=== PATIENT | female | born 1975 | race Caucasian/White ===

== ENCOUNTER 2016-08-16 14:48 | Emergency (ER) | payer BC ==
[~2016-08-16] VITALS: Ht 162.6 cm; Wt 120.0 kg
[~2016-08-16 14:48] MED LIST: ALLDSR/24 PO; ESCI10TA17 PO; LRT5 PO
[2016-08-16 14:53] VITALS: Ht 162.6 cm; Wt 120.0 kg
[2016-08-16] MEDS ORDERED: ONDANSETRON INJ 2 MG/ML 2 ML VIAL IV STA (15:09)
[2016-08-16] MEDS ORDERED: SODIUM CHLORIDE 0.9% 1000ML 1,000 ML IV STA ×3 (15:09→19:26)
--- NOTE | 2016-08-16 15:09 | EMERGENCY ROOM VISIT NOTE ---
History First contact with patient: 14:57 Chief Complaint: VOMITING Stated Complaint: VOMITING, INTENSE HUIZAR, NAUSEA History of Present Illness The patient is a 40 year old female who presents to the Emergency Room with complaints of headache, neck pain and nausea for the last week. This illness appeared to start 2 weeks prior with a lump on the right side of her face for which she went to her primary care doctor and was prescribed augmentin (for which she is still taking). The swelling has slowly improved but she is left with a hard lump on that side. A week ago however she started having slowly increasing nausea with neck pain. She vomited once on Saturday and then again today she has been unable to stop. The pain in her neck also started one week prior and has now spread to the top of her head and behind her eyes. This headache is slowly getting progressively worse and is now the worst headache of her life. Severity 8/10. Her neck muscles are the most painful part of her headache. Her partner appears to be going through a similar illness during the same timeline but has not seen a medical provider for this. IUD - light spotting currently. She denies any possibility of . Review of Systems See HPI for pertinent positives & negatives. A total of 10 systems reviewed and were otherwise negative. Past Medical/Surgical History Medical Problems: (1) Seasonal allergies Surgical Problems: (1) TMJ dysfunction Social History Smoking Status: Never Smoker Smokeless Tobacco Use: No Alcohol Use: none Drug Use: none Marital Status: single Housing Status: lives with family (2 daughters) Current/Historical Medications Scheduled Amoxicillin & Pot Clavulanate (Augmentin 875-125 mg), 1 TAB PO BID Bupropion (Wellbutrin Sr), 150 MG PO BID Fexofenadine-Pseudoephedrine (Ashley-D 24 Hour Allergy), 1 TAB PO DAILY Allergies Coded Allergies: Macrolides (Verified Allergy, Intermediate, 08/16/16) Codeine (Verified Allergy, Unknown, "rash and vomiting", 08/16/16) Latex (Verified Allergy, Unknown, "irritation to latex condoms", 08/16/16) Physical Exam Vital Signs Date Time Temp Pulse Resp B/P (MAP) Pulse Ox O2 Delivery O2 Flow Rate FiO2 08/16/16 20:44 36.6 60 18 95/66 98 08/16/16 20:42 60 18 95/66 98 Room Air 08/16/16 18:17 78 16 113/74 98 Room Air 08/16/16 17:19 67 18 112/66 98 Room Air 08/16/16 14:53 36.6 75 18 112/84 96 Room Air Physical Exam VITAL SIGNS: were reviewed as above GENERAL: moderate acute distress from headache pain SKIN: Warm dry and pink, no rashes HEAD: Normocephalic and atraumatic, tender 5mm firm swelling on right side over parotid gland EYES: extraocular muscles intact, pupils equal and reactive to light, sharp optic discs on panoptic funduscopic examination OROPHARYNX: non erythematous, moist mucus membranes NECK: Supple, no adenopathy. Kernig's sign positive for lower back pain on right side, nuchal rigidity is absent, Brudzinski's is negative LUNGS: No respiratory distress, clear to auscultation, no accessory muscle use HEART: Regular rate and rhythm, heart sounds 1+2, no murmurs ABDOMEN: Soft, mild epigastric tenderness without rebound or guarding, bowel sounds normal BACK: no CVA tenderness EXTREMITIES: Warm and well perfused, no calf tenderness/swelling, no pedal edema NEUROLOGICALLY: Awake alert and oriented without focal deficit. Cranial nerves 2 -12 intact. Cerebellar testing is within normal limits. There is no nystagmus. There is no facial droop. Speech is clear. Vision is grossly normal. No lateralizing weakness or change in sensation in all 4 extremities MUSCULOSKELETAL: Good muscle tone. No evidence of trauma Medical Decision & Procedures ER Provider Diagnostic Interpretation: HEAD CT NONCONTRAST CT DOSE: 537.48 mGy.cm HISTORY: Headache. Mental status change. Severe headache with nausea and vomiting TECHNIQUE: Multiaxial CT images of the head were performed without the use of intravenous contrast. Comparison: None. Findings: The paranasal sinuses and mastoid air cells are clear. The calvarium and skull base are intact. The ventricles and sulci are within normal limits. There is no mass, hematoma, midline shift, or acute infarct. Impression: No acute intracranial abnormality. Electronically signed by: Mitch Sena M.D. 08/16/2016 3:49 PM Dictated Date/Time: 08/16/2016 3:48 PM Laboratory Results 08/16/16 15:20 Red Blood Count 4.26, Mean Corpuscular Volume 94.1, Mean Corpuscular Hemoglobin 31.9, Mean Corpuscular Hemoglobin Concent 33.9, Mean Platelet Volume 9.6, Neutrophils (%) (Auto) 76.2, Lymphocytes (%) (Auto) 16.6, Monocytes (%) (Auto) 5.8, Eosinophils (%) (Auto) 1.1, Basophils (%) (Auto) 0.1, Neutrophils # (Auto) 8.20, Lymphocytes # (Auto) 1.79, Monocytes # (Auto) 0.63, Eosinophils # (Auto) 0.12, Basophils # (Auto) 0.01 08/16/16 15:20 Test 08/16/16 00:00 08/16/16 15:20 08/16/16 19:47 Urine Color YELLOW Urine Appearance CLEAR (CLEAR) Urine pH 5.0 (4.5-7.5) Urine Specific [place] 1.019 (1.000-1.030) Urine Protein NEG (NEG) Urine Glucose (UA) NEG (NEG) Urine Ketones TRACE (NEG) Urine Occult Blood 1+ (NEG) Urine Nitrite NEG (NEG) Urine Bilirubin NEG (NEG) Urine Urobilinogen NEG (NEG) Urine Leukocyte Esterase NEG (NEG) Urine WBC (Auto) 0 /hpf (0-5) Urine RBC (Auto) 0-4 /hpf (0-4) Urine Hyaline Casts (Auto) 1-5 /lpf (0-5) Urine Epithelial Cells (Auto) >30 /lpf (0-5) Urine Bacteria (Auto) NEG (NEG) Urine Test NEG (NEG) White Blood Count 10.77 K/uL (4.8-10.8) Red Blood Count 4.26 M/uL (4.2-5.4) Hemoglobin 13.6 g/dL (12.0-16.0) Hematocrit 40.1 % (37-47) Mean Corpuscular Volume 94.1 fL (80-100) Mean Corpuscular Hemoglobin 31.9 pg (25-34) Mean Corpuscular Hemoglobin Concent 33.9 g/dl (32-36) Platelet Count 271 K/uL (130-400) Mean Platelet Volume 9.6 fL (7.4-10.4) Neutrophils (%) (Auto) 76.2 % Lymphocytes (%) (Auto) 16.6 % Monocytes (%) (Auto) 5.8 % Eosinophils (%) (Auto) 1.1 % Basophils (%) (Auto) 0.1 % Neutrophils # (Auto) 8.20 K/uL (1.4-6.5) Lymphocytes # (Auto) 1.79 K/uL (1.2-3.4) Monocytes # (Auto) 0.63 K/uL (0.11-0.59) Eosinophils # (Auto) 0.12 K/uL (0-0.5) Basophils # (Auto) 0.01 K/uL (0-0.2) RDW Standard Deviation 42.3 fL (36.4-46.3) RDW Coefficient of Variation 12.3 % (11.5-14.5) Immature Granulocyte % (Auto) 0.2 % Immature Granulocyte # (Auto) 0.02 K/uL (0.00-0.02) Anion Gap mmol/L (3-11) Est Creatinine Clear Calc Drug Dose 98.4 ml/min Estimated GFR () 85.1 Estimated GFR (Non- 73.5 BUN/Creatinine Ratio 10.4 (10-20) Calcium Level 9.4 mg/dl (8.5-10.1) Total Bilirubin 0.4 mg/dl (0.2-1) Aspartate Amino Transf (AST/SGOT) 13 U/L (15-37) Alanine Aminotransferase (ALT/SGPT) 23 U/L (12-78) Alkaline Phosphatase 65 U/L (45-117) Total Protein 7.6 gm/dl (6.4-8.2) Albumin 3.6 gm/dl (3.4-5.0) Globulin 4.0 gm/dl (2.5-4.0) Albumin/Globulin Ratio 0.9 (0.9-2) Lipase 112 U/L (73-393) Lyme Disease IgG Antibody NEG (NEG) Lyme Disease IgM Antibody NEG (NEG) CSF Color COLORLESS CSF Appearance CLEAR CSF WBC 1 /uL (0-5) CSF RBC 0 /uL (0) CSF Xanthrochromic NO XANTHOCHROMIA CSF Cell Count Tube # 4 CSF Chemistry Tube # 2 CSF Glucose 50 mg/dl (40-70) CSF Total Protein 59.1 mg/dl (15.0-45.0) Date/Time Source Procedure Growth Status 08/16/16 19:47 Cerebral Spinal Fluid Gram Stain - Final Complete 08/16/16 19:47 Cerebral Spinal Fluid CSF Culture - Final NO GROWTH Complete Medications Administered Medications (Trade) Dose Ordered Sig/Jose Route Start Time Stop Time Status Last Admin Dose Admin Ondansetron HCl (Zofran Inj) 4 mg NOW STAT IV 08/16/16 15:09 08/16/16 15:12 DC 08/16/16 15:42 4 MG Sodium Chloride 1,000 ml @ 999 mls/hr Q1H1M STAT IV 08/16/16 15:09 08/16/16 16:09 DC 08/16/16 15:41 999 MLS/HR Morphine Sulfate (MoRPHine SULFATE INJ) 4 mg NOW STAT IV 08/16/16 15:15 08/16/16 15:18 DC 08/16/16 15:42 4 MG Promethazine HCl 12.5 mg/Sodium Chloride 50.5 ml @ 204 mls/hr NOW STAT IV 08/16/16 16:06 08/16/16 16:20 DC 08/16/16 16:18 204 MLS/HR Sodium Chloride 1,000 ml @ 999 mls/hr Q1H1M STAT IV 08/16/16 16:40 08/16/16 17:40 DC 08/16/16 16:44 999 MLS/HR Hydromorphone HCl (Dilaudid Inj) 1 mg NOW STAT IV 08/16/16 18:05 08/16/16 18:07 DC 08/16/16 18:05 1 MG Promethazine HCl 12.5 mg/Sodium Chloride 50.5 ml @ 204 mls/hr NOW STAT IV 08/16/16 18:05 08/16/16 18:19 DC 08/16/16 18:39 204 MLS/HR Diphenhydramine HCl (Benadryl Inj) 25 mg NOW STAT IV 08/16/16 18:09 08/16/16 18:10 DC 08/16/16 18:09 25 MG Ranitidine HCl (zANTac IV) 50 mg NOW STAT IV 08/16/16 19:24 08/16/16 19:26 DC 08/16/16 20:22 50 MG Ketorolac Tromethamine (Toradol Inj) 30 mg NOW STAT IV 08/16/16 19:24 08/16/16 19:26 DC 08/16/16 20:21 30 MG Sodium Chloride 1,000 ml @ 500 mls/hr Q2H STAT IV 08/16/16 19:26 08/16/16 21:25 DC 08/16/16 20:21 500 MLS/HR Procedure Lumbar Puncture Indication: meningitis symptoms and signs. Verbal and written consent was obtained after the risks and benefits were explained, including but not limited to headache, bleeding/clotting, scarring, infection, pain, and bone/joint/nerve damage. At this time, the risks of the procedure are less than the risks of NOT performing the procedure. A time out was taken and the correct patient and site identified. The patient was placed in the left lateral recumbent position and the back was prepped with betadine and draped in the standard fashion. The L3 intervertebral space was identified, anesthetized locally with 1% lidocaine without epinephrine, and the spinal needle was inserted through the skin with the bevel parallel to the dural fibers. The needle appeared to hit bone on multiple attempts and CSF could not be obtained. The procedure was also attempted multiple times by Dr Teresa without success. The stylet was replaced and the needle was removed. A bandaid was placed and the patient was placed in the supine position. The case was discussed with Dr Mohan who will perform the procedure under fluoroscopic guidance. ED Course 14:58 Complete history and physical performed 15:[address] Teresa Medical Decision Prior records/ancillary studies reviewed. Additional history obtained from the patient. Triage Nursing notes reviewed. The patient's history was concerning for headache. Differential diagnosis: Etiologies such as migraine headache, meningitis, sinusitis, CO exposure, ICH, SAH, infection, tumor, headache, sinus thrombosis, arterial dissection, as well as others were entertained. Physical examination findings: As above. Non-focal. ER treatment provided: Zofran 4mg IV for her nausea, Morphine 4mg IV for her pain. NSS (total of 3L over ED course) boluses given for dehydration. The morphine made her headache and neck pain worse and she refused further pain medications until the lumbar puncture Phenergan 12.5mg IV was prescribed due to ongoing nausea. At the time of the lumbar puncture she was offered additional pain relief due to ongoing headache which she agreed however she had a similar reaction to Dilaudid 1mg IV as per the morphine where her neck pain got worse. Phenergan was again given for After the lumbar puncture she was still having headache and neck pain therefore toradol 30mg IV was given and ranitidine 50mg IV for GI prophylaxis (given she was having some epigastric pain on examination. Diagnostics interpreted by me: The labs were unremarkable. (mildly elevated neutrophils with normal WBC) Urine was positive for Hgb but no RBC. Imaging studies: CT head was performed due to intensity of headache with concurrent nausea and vomiting but was normal. Given normal WBC, lack of current fever, bacterial meningitis was felt to be unlikely. However due to meningitis signs on examination and duration of symptoms the benefits and risks of a lumbar puncture were discussed with the patient and she wished to go ahead with this (see procedure note above). Procedure was attempted by myself and Dr Teresa however this was not successful. Lumbar puncture under radiographic guidance was discussed with Dr Mohan who performed the procedure. The patient was handed over to Dr Teresa at the end of my shift with these results still outstanding. This appears to be consistent with a viral illness however CSF results were outstanding at the time of hand over. The patient informed about the findings as listed above and will await CSF results before discharge. Impression Primary Impression: Viral illness Additional Impressions: Headache Neck pain Departure Information Dispostion Still a Patient Condition FAIR Referrals Alexandria Montiel PA-C (PCP) Patient Instructions My [facility] Resident Tracking Resident Involvement: Resident Care Provided Care Provided: Adult ED Problem Qualifiers
[2016-08-16] MEDS ORDERED: MoRPHine SULFATE 4 MG/ML 1 ML CARP\\VIAL IV STA (15:15)
[2016-08-16] MEDS ORDERED: AMOX875T PO (15:27)
[2016-08-16] MEDS ORDERED: FEXO1TAB58 PO (15:27)
[2016-08-16] MEDS ORDERED: BUPR-79 PO (15:27)
[2016-08-16 15:49] LABS: BASO % 0.1 %; BASO ABS # 0.01 K/uL (0-0.2); COMPLETE YES; EOS % 1.1 %; HEMATOCRIT 40.1 % (37-47); IG% 0.2 %; LYMPH % 16.6 %; LYMPH ABS # 1.79 K/uL (1.2-3.4); MEAN CELL VOLUME 94.1 fL (80-100); MEAN CORPUSCULAR HEMOGLOBIN 31.9 pg (25-34); MEAN CORPUSCULAR HGB CONC 33.9 g/dl (32-36); MEAN PLATELET VOLUME 9.6 fL (7.4-10.4); MONO % 5.8 %; NEUT % 76.2 %; PLATELET COUNT 271 K/uL (130-400); RED BLOOD COUNT 4.26 M/uL (4.2-5.4); WHITE BLOOD COUNT 10.77 K/uL (4.8-10.8)
--- NOTE | 2016-08-16 15:51 | DIAGNOSTIC IMAGING REPORT ---
HEAD CT NONCONTRAST CT DOSE: 537.48 mGy.cm HISTORY: Headache. Mental status change. Severe headache with nausea and vomiting TECHNIQUE: Multiaxial CT images of the head were performed without the use of intravenous contrast. Comparison: None. Findings: The paranasal sinuses and mastoid air cells are clear. The calvarium and skull base are intact. The ventricles and sulci are within normal limits. There is no mass, hematoma, midline shift, or acute infarct. Impression: No acute intracranial abnormality. Electronically signed by: Mitch Sena M.D. 08/16/2016 3:49 PM Dictated Date/Time: 08/16/2016 3:48 PM
[2016-08-16] MEDS ORDERED: PROMETHAZINE HCL INJ 12.5 MG in SODIUM CHLORIDE 0.9% 50ML 50 ML IV STA ×2 (16:06→18:05)
[2016-08-16 16:38] LABS: CHLORIDE 107 mmol/L (98-107); POTASSIUM 4.4 mmol/L (3.5-5.1); SODIUM 140 mmol/L (136-145)
[2016-08-16 16:53] LABS: LYME DISEASE AB IGG NEG (NEG); LYME DISEASE AB IGM NEG (NEG)
[2016-08-16 16:59] LABS: AST/SGOT 13 U/L (15-37); CALCIUM 9.4 mg/dl (8.5-10.1); CREATININE 0.96 mg/dl (0.60-1.20); GLUCOSE 84 mg/dl (70-99)
[2016-08-16 17:01] LABS: ALKALINE PHOSPHATASE 65 U/L (45-117)
[2016-08-16 17:06] LABS: ALB/GLOB RATIO 0.9 (0.9-2); BLOOD UREA NITROGEN 10 mg/dl (7-18); BUN/CREATININE RATIO 10.4 (10-20); CARBON DIOXIDE 23 mmol/L (21-32)
[2016-08-16 17:09] LABS: ALT/SGPT 23 U/L (12-78)
[2016-08-16] MEDS ORDERED: HYDROmorphone INJ 1 MG/ML SYR IV STA (18:05)
[2016-08-16] MEDS ORDERED: HYDROmorphone INJ 1 MG/ML SYR ONE (18:06)
[2016-08-16] MEDS ORDERED: DiphenhydrAMINE HCL 50 MG/ML VIAL IV STA (18:09)
[2016-08-16] MEDS ORDERED: DiphenhydrAMINE HCL 50 MG/ML VIAL ONE (18:10)
[2016-08-16] MEDS ORDERED: XYLOCAINE 1%/SOD BICARB 20 ML VIAL INFIL ONE (18:24)
[2016-08-16 19:01] LABS: URINE APPEARANCE CLEAR (CLEAR); URINE BILIRUBIN NEG (NEG); URINE COLOR YELLOW; URINE EPITHELIAL CELL AUTO >30 /lpf (0-5); URINE NITRITE NEG (NEG); URINE SPECIFIC GRAVITY 1.019 (1.000-1.030); UROBILINOGEN NEG (NEG); ZZUR CULT IF INDIC CLEAN CATCH NO
[2016-08-16 19:02] LABS: MANUAL MICROSCOPIC REQUIRED? NO; REVIEW REQ? NO
[2016-08-16] MEDS ORDERED: KETOROLAC TROMETHAMINE 30 MG/ML VIAL IV STA (19:24)
[2016-08-16] MEDS ORDERED: RANITIDINE HCL 50 MG/100 ML D5W IV STA (19:24)
--- NOTE | 2016-08-16 19:39 | EMERGENCY ROOM VISIT NOTE ---
ED Visit Note First contact with patient: 14:56 Resident Physician Supervision Note: I interviewed and examined the patient. Discussed with Dr. Oliver and agree with findings and plan as documented in the note. Any exceptions or clarifications are listed here: [None] This pt was evaluated and appeared to be in no distress. IV access was obtained and lab work was drawn. Lab work is unrevealing. CT head is negative. Pt required IV morphine and zofran. She was hydrated with normal saline solution. The results were reviewed with the patient. LP was discussed. She consented to the procedure. Pt was given additional IV dilaudid 1 mg, benadryl 25 mg and phenergan 12.5 mg for nausea. Please see my procedure note. Any attempt at the bedside was unsuccessful, largely due to body habitus. A referral to radiology was made for LP under fluoroscopy. Please see Dr. Oliver's notes for further details and disposition. Lumbar Puncture Indication: Headache, neck pain. Verbal consent was obtained after the risks and benefits were explained, including but not limited to headache, bleeding/clotting, scarring, infection, pain, and bone/joint/nerve damage. At this time, the risks of the procedure are less than the risks of NOT performing the procedure. A time out was taken and the correct patient and site identified. The patient was placed in the left lateral decubitus position and the back was prepped with Betadine and draped in the standard fashion. The L3 intervertebral space was identified, anesthetized locally with 1% lidocaine without epinephrine, and the spinal needle was inserted through the skin with the bevel parallel to the dural fibers. Multiple attempts were made but d/t redundant soft tissues, landmarks were blunted. LP attempts were unsuccessful and a referral to radiology was made. A bandaid was placed and the patient was placed in the supine position. The patient tolerated the procedure well and there were no complications. Diagnosis: Headache and neck pain, viral illness Documented By: Katherine Teresa
[2016-08-16 20:30] LABS: CSF APPEARANCE CLEAR; CSF COLOR COLORLESS; CSF XANTHOCHROMIC NO XANTHOCHROMIA
--- NOTE | 2016-08-16 20:34 | DIAGNOSTIC IMAGING REPORT ---
FLUOROSCOPICALLY GUIDED LUMBAR PUNCTURE CLINICAL HISTORY: Headache and neck pain. Rule out meningitis. PROCEDURE: The procedure, risks and benefits were discussed with the patient including the risk of spinal headache, bleeding and infection. The patient agreed to the procedure and informed written consent was obtained. The procedure was performed by Dr. Mohan following a timeout. The right L4-L5 interlaminar space was targeted. Skin overlying the space was prepped and draped in sterile fashion and local anesthesia was achieved with 1% lidocaine. Under intermittent fluoroscopic guidance, a 7 inch 22-gauge spinal needle was directed into the thecal sac with immediate return of clear cerebrospinal fluid. 8 cc of CSF was collected in 4 vials and sent to laboratory as directed. The needle was removed. The patient tolerated the procedure well and no immediate complications were evident. IMPRESSION: Fluoroscopically guided lumbar puncture with collection of 8 cc of clear cerebrospinal fluid. Electronically signed by: Jed Mohan M.D. 08/16/2016 8:32 PM Dictated Date/Time: 08/16/2016 8:31 PM
[2016-08-16 20:35] LABS: CSF CHEMISTRY TUBE # 2
[2016-08-16 20:42] LABS: CSF TOTAL PROTEIN 59.1 mg/dl (15.0-45.0)
[2016-08-16 20:44] VITALS: BP 95/66; PULSE 60; TEMP 36.6; O2SAT 98
[2016-08-21 15:28] LABS: LYME DNA PCR CSF OR SYNOVIAL Not detected (Not Detected); LYME DNA SOURCE CSF
== END 2016-08-16 20:44 | disposition home or self-care (01) ==
LOC: C.EDB 14:49 → C.EDA 20:44
DX: B34.9 Viral infection, unspecified (principal); R51 Headache; M54.2 Cervicalgia; R11.2 Nausea with vomiting, unspecified; J30.2 Other seasonal allergic rhinitis; R22.0 Localized swelling, mass and lump, head